=== PATIENT | male | born 1970 | race Caucasian/White ===

== ENCOUNTER 2019-06-18 07:09 | Emergency (ER) | payer MEDICAID ==
[~2019-06-18] VITALS: Ht 165.1 cm; Wt 73.9 kg
[~2019-06-18 07:09] MED LIST: CIPR500T4 PO; FINA5TAB4 PO; TAMS-14 PO
[2019-06-18 07:18] VITALS: Ht 165.1 cm; Wt 73.9 kg
[2019-06-18] MEDS ORDERED: morphine 4 MG/ML VIAL IV STA (07:27)
[2019-06-18] MEDS ORDERED: SOD CHLORIDE 0.9% 500 ML IV STA (07:27)
[2019-06-18] MEDS ORDERED: ONDANSETRON 4 MG INJ IV STA (07:27)
[2019-06-18 09:35] VITALS: BP 116/74; PULSE 89; RESP 18
== END 2019-06-18 09:35 | disposition home or self-care (01) ==
LOC: E/R 07:09
DX: N40.1 Benign prostatic hyperplasia with lower urinary tract symptoms (principal); R33.8 Other retention of urine
CPT/HCPCS: 36415; 51702; 80053; 81001; 83690; 85025; 85610; 85730; 96374; 96375; J2270; J2405; J7040; Z7502

== ENCOUNTER 2019-06-18 19:48 | Emergency (ER) | payer MEDICAID ==
[~2019-06-18] VITALS: Ht 170.2 cm; Wt 73.3 kg
[2019-06-18 19:59] VITALS: Ht 170.2 cm; Wt 73.3 kg
[2019-06-18 21:50] VITALS: BP 126/86; PULSE 80; RESP 18
== END 2019-06-18 20:00 | disposition home or self-care (01) ==
LOC: E/R 19:48
DX: R33.9 Retention of urine, unspecified (principal)
CPT/HCPCS: 51702; Z7502